=== PATIENT | female | born 1960 | race Caucasian/White ===

== ENCOUNTER → 2021-09-07 | Outpatient (CLI) | payer BC ==
[~2021-09-07] MED LIST: AMIO200T68 PO; AMLO2.5T4 PO; APIX5TAB PO; CHOL200059 PO; DENO60DI SQ; MYCOPHENOLATE PO; TRAM50TA4 PO
== END | disposition home or self-care (01) ==
LOC: RAH 13:19
PROVIDERS: ATTEND Urology
DX: J90 Pleural effusion, not elsewhere classified (principal); D30.00 Benign neoplasm of unspecified kidney
CPT/HCPCS: 76770

== ENCOUNTER 2021-10-30 01:50 | Inpatient (IN) | payer BC ==
[~2021-10-30] VITALS: Ht 172.7 cm; Wt 45.7 kg
[2021-10-30 02:28] LABS: BASOPHILS % (AUTO) 0.2 % (0.0-5.0); HEMATOCRIT 38.4 % (36-48); LYMPHOCYTES % (AUTO) 4.2 % (21.0-51.0); MEAN CORPUSCULAR HEMOGLOBIN 27.5 pg (27.0-33.0); MEAN CORPUSCULAR HGB CONC 31.8 g/dL (32.0-36.0); MEAN CORPUSCULAR VOLUME 86.5 fL (79-99); MONOCYTES % (AUTO) 4.3 % (3.0-13.0); NEUTROPHILS % (AUTO) 90.6 % (40.0-77.0); PLATELET COUNT (AUTO) 198 K/uL (130-400); RED BLOOD CELL COUNT(AUTO) 4.44 MIL/uL (4.00-5.50); RED CELL DISTRIBUTION WIDTH 18.4 % (11.0-15.5); WHITE BLOOD COUNT (AUTO) 12.8 K/uL (4.8-10.8)
[2021-10-30] MEDS ORDERED: ACETAMINOPHEN 500 MG TABLET PO ONE (02:30)
[2021-10-30 02:41] LABS: CREATININE 2.1 mg/dL (0.5-1.5); POTASSIUM 4.1 mmol/L (3.5-5.1)
[2021-10-30 02:46] LABS: ALBUMIN 3.3 g/dL (3.5-5.0); TOTAL PROTEIN, SERUM 8.3 g/dL (6.0-8.3)
[2021-10-30] MEDS ORDERED: 0.9%NACL 1000ML 1,000 ML IV ONE (03:00)
[2021-10-30] MEDS ORDERED: 0.9% NACL 250ML 250 ML IV ONE (04:00)
[2021-10-30] MEDS ORDERED: VANCOMYCIN 1G VIAL IVPB ONE (04:00)
[2021-10-30] MEDS ORDERED: ZOSYN 3.375GM +NS 50ML IV SCH (04:00)
[2021-10-30] MEDS ORDERED: VANCOMYCIN 1G/250ML KIT 250 ML IV ONE (04:01)
[2021-10-30] MEDS ORDERED: ONDANSETRON 4MG INJ IVP PRN (04:30)
[2021-10-30] MEDS ORDERED: VANCOMYCIN PROTOCOL PER PHARMACY IV SCH (04:30)
[2021-10-30] MEDS: CEFEPIME HCL 2 GM VIAL IVP SCH ×3 (04:30→21:02)
[2021-10-30 05:26] VITALS: BP 80/52
[2021-10-30] MEDS ORDERED: FURO40TA5 PO (06:32)
[2021-10-30] MEDS ORDERED: MYCO250C7 PO (06:32)
[2021-10-30 08:20] VITALS: BP 90/49
[2021-10-30] MEDS: ASPIRIN 81 MG EC TAB PO SCH (08:34)
[2021-10-30] MEDS ORDERED: ENOXAPARIN SODIUM 30 MG/0.3 ML SQ SCH (09:00)
[2021-10-30 11:52] VITALS: BP 99/62
[2021-10-30] MEDS ORDERED: GENTAMICIN 15 GM CREAM TP ONE (14:00)
[2021-10-30] MEDS ORDERED: PHARMACY COMMUNICATION MISC SCH (15:00)
[2021-10-30 15:52] VITALS: BP 87/52
[2021-10-30 19:00] VITALS: BP 89/46
[2021-10-30] MEDS: LINEZOLID 600 MG/ISO-OSM 300 ML IV SCH (21:00)
[2021-10-30] MEDS: APIXABAN 5 MG TABLET PO SCH (21:02)
[2021-10-30] MEDS: AMIODARONE 200 MG TABLET PO SCH (21:02)
[2021-10-31] VITALS (7 sets, daily range): BP systolic 86–96; BP diastolic 51–68
[2021-10-31] MEDS: CEFEPIME HCL 2 GM VIAL IVP SCH ×3 (04:09→22:07)
[2021-10-31] MEDS: AMIODARONE 200 MG TABLET PO SCH ×2 (08:11→21:59)
[2021-10-31] MEDS: APIXABAN 5 MG TABLET PO SCH ×2 (08:12→21:59)
[2021-10-31] MEDS: ASPIRIN 81 MG EC TAB PO SCH (08:12)
[2021-10-31] MEDS: ACETAMINOPHEN 325 MG TAB PO PRN (08:16)
[2021-10-31] MEDS: LINEZOLID 600 MG/ISO-OSM 300 ML IV SCH ×2 (08:16→21:58)
[2021-10-31] MEDS ORDERED: FUROSEMIDE 40 MG TABLET PO SCH (09:00)
[2021-10-31 10:54] LABS: CREATININE 1.7 mg/dL (0.5-1.5); POTASSIUM 3.2 mmol/L (3.5-5.1)
[2021-10-31 10:59] LABS: ALBUMIN 2.4 g/dL (3.5-5.0); MAGNESIUM 1.6 mg/dL (1.80-2.40); TOTAL PROTEIN, SERUM 6.5 g/dL (6.0-8.3)
[2021-10-31] MEDS ORDERED: MAGNESIUM 4GM PREMIX 100ML 100 ML IV ONE (16:30)
[2021-10-31] MEDS: FUROSEMIDE 40MG VIAL IV SCH (17:15)
[2021-10-31] MEDS: KCL 20 MEQ ERTAB PO SCH ×2 (17:15→21:59)
[2021-11-01] MEDS: ACETAMINOPHEN 325 MG TAB PO PRN (00:15)
[2021-11-01 00:41] VITALS: BP 121/52
[2021-11-01 04:16] VITALS: BP 98/67
[2021-11-01] MEDS: FUROSEMIDE 40MG VIAL IV SCH ×2 (04:49→18:34)
[2021-11-01] MEDS: CEFEPIME HCL 2 GM VIAL IVP SCH ×3 (04:49→22:11)
[2021-11-01 08:00] VITALS: BP 92/57
[2021-11-01 09:42] LABS: CREATININE 1.7 mg/dL (0.5-1.5); MAGNESIUM 2.8 mg/dL (1.80-2.40); POTASSIUM 3.7 mmol/L (3.5-5.1)
[2021-11-01] MEDS: LINEZOLID 600 MG/ISO-OSM 300 ML IV SCH ×2 (11:28→22:11)
[2021-11-01] MEDS: APIXABAN 5 MG TABLET PO SCH ×2 (11:35→22:10)
[2021-11-01] MEDS: ASPIRIN 81 MG EC TAB PO SCH (11:35)
[2021-11-01] MEDS: AMIODARONE 200 MG TABLET PO SCH ×2 (11:35→22:10)
[2021-11-01 11:55] VITALS: BP 88/52
[2021-11-01 16:00] VITALS: BP 97/57
[2021-11-01 20:00] VITALS: BP 98/61
[2021-11-02] VITALS: BP 97/55
[2021-11-02 04:00] VITALS: BP 97/57
[2021-11-02 05:09] LABS: BASOPHILS % (AUTO) 0.5 % (0.0-5.0); EOSINOPHILS % (AUTO) 1.5 % (0.0-8.0); HEMATOCRIT 32.7 % (36-48); LYMPHOCYTES % (AUTO) 21.7 % (21.0-51.0); MEAN CORPUSCULAR HEMOGLOBIN 26.9 pg (27.0-33.0); MEAN CORPUSCULAR HGB CONC 32.4 g/dL (32.0-36.0); MONOCYTES % (AUTO) 10.6 % (3.0-13.0); NEUTROPHILS % (AUTO) 64.7 % (40.0-77.0); PLATELET COUNT (AUTO) 181 K/uL (130-400); RED BLOOD CELL COUNT(AUTO) 3.94 MIL/uL (4.00-5.50); RED CELL DISTRIBUTION WIDTH 18.6 % (11.0-15.5); WHITE BLOOD COUNT (AUTO) 5.9 K/uL (4.8-10.8)
[2021-11-02 05:22] LABS: CREATININE 1.7 mg/dL (0.5-1.5); POTASSIUM 3.5 mmol/L (3.5-5.1)
[2021-11-02] MEDS: CEFEPIME HCL 2 GM VIAL IVP SCH ×3 (05:53→20:17)
[2021-11-02] MEDS: FUROSEMIDE 40MG VIAL IV SCH ×2 (05:53→15:37)
[2021-11-02] MEDS: LINEZOLID 600 MG/ISO-OSM 300 ML IV SCH ×2 (07:59→20:17)
[2021-11-02] MEDS: AMIODARONE 200 MG TABLET PO SCH ×2 (07:59→20:17)
[2021-11-02] MEDS: ASPIRIN 81 MG EC TAB PO SCH (07:59)
[2021-11-02] MEDS: APIXABAN 5 MG TABLET PO SCH ×2 (07:59→20:17)
[2021-11-02 08:00] VITALS: BP 112/75
[2021-11-02 09:16] LABS: APPEARANCE,URINE Clear (CLEAR); BILIRUBIN,URINE Negative (NEGATIVE); COLOR,URINE Yellow (YELLOW); GLUCOSE, URINE (UA) Negative (NEGATIVE); KETONES,URINE Negative (NEGATIVE); LEUKOCYTE ESTERASE ,URINE Negative (NEGATIVE); NITRATE,URINE Negative (NEGATIVE); OCCULT BLOOD,URINE Negative (NEGATIVE); PH,URINE 6.5 (5.0-8.0); PROTEIN,URINE Trace mg/dL (NEGATIVE); UROBILINOGEN,URINE 0.2 mg/dL (0.2-1.0)
[2021-11-02 10:55] LABS: BACTERIA,URINE Rare /HPF (None Seen); RBC,URINE 0-1 /HPF (0-1); SQUAMOUS EPITHELIAL CELL,UR Rare /HPF (0-2); WBC,URINE 0-1 /HPF (0-1)
[2021-11-02 12:00] VITALS: BP 93/48
[2021-11-02 16:00] VITALS: BP 108/63
[2021-11-02 20:00] VITALS: BP 110/66
[2021-11-03] VITALS: BP 102/6
[2021-11-03] MEDS: CEFEPIME HCL 2 GM VIAL IVP SCH ×2 (03:52→13:15)
[2021-11-03] MEDS: FUROSEMIDE 40MG VIAL IV SCH ×2 (03:52→16:14)
[2021-11-03 04:00] VITALS: BP 99/57
[2021-11-03 08:00] VITALS: BP 84/55
[2021-11-03] MEDS: APIXABAN 5 MG TABLET PO SCH (09:15)
[2021-11-03] MEDS: AMIODARONE 200 MG TABLET PO SCH (09:15)
[2021-11-03] MEDS: ASPIRIN 81 MG EC TAB PO SCH (09:16)
[2021-11-03] MEDS: LINEZOLID 600 MG/ISO-OSM 300 ML IV SCH (09:20)
[2021-11-03 12:00] VITALS: BP 95/57
[2021-11-03] MEDS ORDERED: KCL 20 MEQ ERTAB PO SCH (15:30)
[2021-11-03 16:00] VITALS: BP 90/55
== END 2021-11-03 18:29 | disposition home or self-care (01) | DRG 871 ==
LOC: EDH 01:50 → UNDOADMIN 01:51 → EDHIP 01:51 → 3BH 05:11 → EDHIP 05:11
PROVIDERS: ADMIT Internal Medicine Infectious Disease; ATTEND Internal Medicine Infectious Disease
PROC: 4B02XTZ Measurement of Cardiac Defibrillator, External Approach (ICD-10-PCS; principal; 2021-10-30)
DX: A41.9 Sepsis, unspecified organism (principal); I21.A1 Myocardial infarction type 2; I50.23 Acute on chronic systolic (congestive) heart failure; N18.6 End stage renal disease; I47.2 Ventricular tachycardia; L03.116 Cellulitis of left lower limb; L97.329 Non-pressure chronic ulcer of left ankle with unspecified severity; I42.9 Cardiomyopathy, unspecified; R65.20 Severe sepsis without septic shock; I25.2 Old myocardial infarction; I51.3 Intracardiac thrombosis, not elsewhere classified; I73.00 Raynaud's syndrome without gangrene; M34.9 Systemic sclerosis, unspecified; Z20.822 Contact with and (suspected) exposure to COVID-19; Z95.810 Presence of automatic (implantable) cardiac defibrillator; Z79.899 Other long term (current) drug therapy; Z90.49 Acquired absence of other specified parts of digestive tract; B95.0 Streptococcus, group A, as the cause of diseases classified elsewhere
CPT/HCPCS: 36415; 71045; 73600; 80048; 80053; 81001; 83605; 83735; 83880; 84484; 85025; 87040; 87077; 87186; 87635; 87804; 93005; 93308; 99291; C9803; G0378; J0692; J1650; J1940; J2020; J2543; J3370; J3475

== ENCOUNTER → 2022-01-29 | Outpatient (CLI) | payer BC ==
[~2022-01-29] MED LIST changes: -AMLO2.5T4 PO; +FURO40TA5 PO; +MYCO250C7 PO
== END | disposition home or self-care (01) ==
LOC: SHCH 09:49
PROVIDERS: ATTEND Internal Medicine Cardiovascular Disease
DX: I31.39 Other pericardial effusion (noninflammatory) (principal); I07.1 Rheumatic tricuspid insufficiency
CPT/HCPCS: 93306

== ENCOUNTER 2022-03-24 13:22 | Emergency (ER) | payer BC ==
[~2022-03-24] VITALS: Ht 172.7 cm; Wt 45.4 kg
[2022-03-24 15:20] LABS: BASOPHILS % (AUTO) 0.2 % (0.0-5.0); EOSINOPHILS % (AUTO) 1.9 % (0.0-8.0); HEMATOCRIT 44.9 % (36-48); LYMPHOCYTES % (AUTO) 8.5 % (21.0-51.0); MEAN CORPUSCULAR HEMOGLOBIN 28.7 pg (27.0-33.0); MEAN CORPUSCULAR HGB CONC 31.8 g/dL (32.0-36.0); MONOCYTES % (AUTO) 6.9 % (3.0-13.0); NEUTROPHILS % (AUTO) 81.3 % (40.0-77.0); PLATELET COUNT (AUTO) 176 K/uL (130-400); RED BLOOD CELL COUNT(AUTO) 4.99 MIL/uL (4.00-5.50); RED CELL DISTRIBUTION WIDTH 20.3 % (11.0-15.5); WHITE BLOOD COUNT (AUTO) 12.1 K/uL (4.8-10.8)
[2022-03-24 15:28] LABS: CREATININE 1.4 mg/dL (0.5-1.5); POTASSIUM 4.7 mmol/L (3.5-5.1)
[2022-03-24 15:33] LABS: ALBUMIN 2.9 g/dL (3.5-5.0); TOTAL PROTEIN, SERUM 6.9 g/dL (6.0-8.3)
[2022-03-24 17:36] VITALS: BP 129/70
== END 2022-03-24 17:45 | disposition home or self-care (01) ==
LOC: EDH 13:22
DX: S40.022A Contusion of left upper arm, initial encounter (principal); R79.89 Other specified abnormal findings of blood chemistry; I73.00 Raynaud's syndrome without gangrene; M34.9 Systemic sclerosis, unspecified; I25.2 Old myocardial infarction; Z79.899 Other long term (current) drug therapy; Z98.890 Other specified postprocedural states; X58.XXXA Exposure to other specified factors, initial encounter; Y93.89 Activity, other specified; Y92.89 Other specified places as the place of occurrence of the external cause; Y99.8 Other external cause status
CPT/HCPCS: 36415; 80053; 84484; 85025; 93005; 93931; 93971